=== PATIENT | female | born 1975 | race Caucasian/White ===

== ENCOUNTER 2017-02-01 09:30 | Emergency (ER) | payer SELFPAY ==
[~2017-02-01] VITALS: Ht 172.7 cm; Wt 64.0 kg
[~2017-02-01 09:30] MED LIST: AMLO10TA2 PO; CLON-275 PO; METO50TA82 PO
[2017-02-01] MEDS ORDERED: SODIUM CHLORIDE 0.9% 1,000 ML IV ONE (11:05)
[2017-02-01] MEDS ORDERED: ONDANSETRON 2MG/ML, 2ML ONE (11:15)
[2017-02-01] MEDS ORDERED: METOPROLOL TARTRATE 50 MG TABLET ONE (11:15)
[2017-02-01] MEDS ORDERED: ACETAMINOPHEN 325 MG TABLET ONE (11:15)
[2017-02-01] MEDS ORDERED: LORazepam 0.5MG TABLET ONE (11:29)
[2017-02-01] MEDS ORDERED: ONDANSETRON ODT 4 MG ONE (11:29)
[2017-02-01] MEDS ORDERED: AMLODIPINE 5 MG TABLET PO ONE (11:30)
[2017-02-01] MEDS ORDERED: ONDANSETRON ODT 4 MG PO ONE (11:30)
[2017-02-01] MEDS ORDERED: ACETAMINOPHEN 325 MG TABLET PO ONE (11:30)
[2017-02-01] MEDS ORDERED: LORazepam 0.5MG TABLET PO ONE (11:30)
[2017-02-01] MEDS ORDERED: ONDANSETRON 2MG/ML, 2ML IVPush ONE (11:30)
[2017-02-01 11:43] LABS: BLOOD UREA NITROGEN 12 mg/dL (7-18)
[2017-02-01 11:44] LABS: HEMOGLOBIN 16.2 g/dL (11.7-16.4)
[2017-02-01 13:09] VITALS: BP 138/97
[2017-02-02] MEDS ORDERED: METOPROLOL TARTRATE 50 MG TABLET PO SCH (06:00)
== END 2017-02-01 13:15 | disposition home or self-care (01) ==
LOC: ED 13:08
DX: J01.00 Acute maxillary sinusitis, unspecified (principal); J01.20 Acute ethmoidal sinusitis, unspecified; J20.9 Acute bronchitis, unspecified; I10 Essential (primary) hypertension; Z88.2 Allergy status to sulfonamides; Z88.8 Allergy status to other drugs, medicaments and biological substances; Z90.710 Acquired absence of both cervix and uterus
CPT/HCPCS: 36415; 70450; 71010; 80048; 82040; 83605; 85025; 85610; 93005; 99285; Q0162